=== PATIENT | male | born 2000 | race American Indian/Alaskan Native ===

== ENCOUNTER 2019-09-30 11:16 | Emergency (ER) | payer MEDICAID ==
[2019-09-30 12:29] LABS: Basophils % (Auto) 0.5 % (0.0-1.8); Eosinophils # (Auto) 0.3 K/mm3 (0.0-0.4); Hematocrit 46.6 % (35.5-45.6); Hemoglobin 15.7 gm/dl (11.8-15.2); Lymphocytes # (Auto) 1.6 K/mm3 (1.2-5.4); Lymphocytes % (Auto) 24.3 % (13.4-35.0); Mean Corpuscular HGB Conc 34 % (32-34); Mean Corpuscular Volume 81 fl (84-94); Monocytes # (Auto) 0.5 K/mm3 (0.0-0.8); Monocytes % (Auto) 7.8 % (0.0-7.3); Red Blood Count 5.77 M/mm3 (3.65-5.03); Red Cell Distribution Width 14.5 % (13.2-15.2)
[2019-09-30 12:37] LABS: Platelet Count 242 K/mm3 (140-440)
[2019-09-30 12:41] LABS: Bacteria,Urine 1+ /HPF (Negative); Bilirubin,Urine NEG (Negative); Blood,Urine NEG (Negative); Color,Urine Yellow (Yellow); Mucus,Urine 1+ /HPF; Protein,Urine <15 mg/dL mg/dL (Negative)
[2019-09-30] MEDS ORDERED: TETANUS,DIPH,PERTUSS(ACELL) VACCINE 0.5 ML SYRINGE IM ONE (12:41)
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
[2019-09-30 12:44] LABS: Alanine Aminotransferase 19 units/L (7-56); Albumin 4.7 g/dL (3.9-5); BUN/Creatinine Ratio 12; Blood Urea Nitrogen 13 mg/dL (9-20); Calcium 9.6 mg/dL (8.4-10.2); Hemolysis Index 5
[2019-09-30 12:45] LABS: Amphetamine Screen,Urine PRESUMPTIVE NEGATIVE; Benzodiazepines Screen,Urine PRESUMPTIVE NEGATIVE; Cannabinoid Screen,Urine PRESUMPTIVE NEGATIVE; Cocaine Screen,Urine PRESUMPTIVE NEGATIVE; Methadone Screen,Urine PRESUMPTIVE NEGATIVE; Opiate Screen,Urine PRESUMPTIVE NEGATIVE
[2019-09-30 16:36] VITALS: BP 154/81
== END 2019-09-30 16:38 | disposition home or self-care (01) ==
LOC: ED 11:16
DX: R46.2 Strange and inexplicable behavior (principal); I10 Essential (primary) hypertension; F20.9 Schizophrenia, unspecified; Z98.890 Other specified postprocedural states; Y08.89XA Assault by other specified means, initial encounter; Y93.89 Activity, other specified; Y92.89 Other specified places as the place of occurrence of the external cause; Y99.8 Other external cause status; Z79.899 Other long term (current) drug therapy
CPT/HCPCS: 36415; 80053; 80307; 80320; 81001; 85025; 90471; 90715; G0480

== ENCOUNTER 2020-03-08 10:48 | Emergency (ER) | payer MEDICAID ==
[2020-03-08 11:12] VITALS: BP 157/99
[2020-03-08] MEDS ORDERED: QUEtiapine 25 MG TAB PO ONE (11:42)
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
== END 2020-03-08 13:45 | disposition home or self-care (01) ==
LOC: ED 10:48
DX: F91.9 Conduct disorder, unspecified (principal); F84.0 Autistic disorder; I10 Essential (primary) hypertension; F20.9 Schizophrenia, unspecified; Z79.899 Other long term (current) drug therapy
CPT/HCPCS: 99283